=== PATIENT | female | born 1985 | race Caucasian/White ===

== ENCOUNTER 2017-07-25 08:49 | Emergency (ER) | payer MEDICAID ==
[2017-07-25 08:58] VITALS: RESP 18; TEMP 98.7; BMI 51.5
--- NOTE | 2017-07-25 09:22 | ED PDOC ---
Arrival/HPI - General Chief Complaint: Chest Pain Time Seen by Provider: 07/25/17 08:59 Historian: Patient - History of Present Illness Narrative History of Present Illness (Text): 07/25/17 09:19 A 31 year old female, whose past medical history includes hypertension and anxiety, presents to the emergency department complaining of left-side sharp chest pain. Patient reports pain has been on and off for few months. Patient called PMD to make an appointment but physician was unavailable. States episodes occur 3-5 times daily randomly. Episodes last between few seconds to few minutes. Recently began experiencing shortness of breath associated with symptom and believes she is getting worse in condition. Patient denies any fever , cough, nausea, vomiting, or any other complaints at this time. Patient does not smoke, drink alcohol, or substance abuse. Denies any recent travel or surgeries. PMD: Dr. Ordonez Time/Duration: Other (2 months on and off) Past Medical History - Provider Review Nursing Documentation Reviewed: Yes - Cardiac Hx Cardiac Disorders: Yes Hx Hypertension: Yes - Psychiatric Hx Psychophysiologic Disorder: Yes Hx Anxiety: Yes Hx Substance Use: No Family/Social History - Physician Review Nursing Documentation Reviewed: Yes Family/Social History: CAD/VA Smoking Status: Never Smoked Hx Alcohol Use: No Hx Substance Use: No Allergies/Home Meds Allergies/Adverse Reactions: Allergies No Known Allergies Allergy (Verified 07/25/17 09:14) Home Medications: Home Meds Medication Instructions Recorded Confirmed Escitalopram [Lexapro] 10 mg PO DAILY 07/25/17 07/25/17 Metoprolol Tartrate [Lopressor] 25 mg PO DAILY 07/25/17 07/25/17 Review of Systems - Physician Review All systems were reviewed & negative as marked: Yes - Review of Systems Respiratory: SOB Cardiovascular: Chest Pain Physical Exam Vital Signs Reviewed: Yes Vital Signs Temp Pulse Resp BP Pulse Ox 07/25/17 10:14 82 18 148/88 98 07/25/17 08:58 98.7 F 84 18 153/91 H 100 Temperature: Afebrile Blood Pressure: Hypertensive Pulse: Regular Respiratory Rate: Normal Appearance: Positive for: Well-Appearing Pain Distress: None Mental Status: Positive for: Alert and Oriented X 3 - Systems Exam Head: Present: Atraumatic, Normocephalic Pupils: Present: PERRL Extroacular Muscles: Present: EOMI Conjunctiva: Present: Normal Mouth: Present: Moist Mucous Membranes Neck: Present: Normal Range of Motion Respiratory/Chest: Present: Other (left side chest pain) Cardiovascular: Present: Regular Rate and Rhythm, Normal S1, S2. No: Murmurs Abdomen: No: Tenderness, Distention, Peritoneal Signs Back: Present: Normal Inspection Upper Extremity: Present: Normal Inspection. No: Cyanosis, Edema Lower Extremity: Present: Normal Inspection. No: Edema Neurological: Present: GCS=15, CN II-XII Intact, Speech Normal Skin: Present: Warm, Dry, Normal Color. No: Rashes Psychiatric: Present: Alert, Oriented x 3, Normal Insight, Normal Concentration Medical Decision Making ED Course and Treatment: 07/25/17 09:20 Impression: 31 year old female with chest pain and shortness of breath. Benign physical exam. Plan: -- Chest X-ray -- POC Urine Test -- Reassess and disposition Progress Notes: 07/25/2017 09:40 PERRC negative. Patient offered blood work but declines and wishes to have x- ray done and to be discharged. EKG: Ordered, reviewed, and independently interpreted the EKG. Rate : 76 BPM Rhythm : NSR Interpretation : No ST-segment elevations or depressions, no T-wave inversions, normal intervals. Comparison : No previous EKG for comparison. 07/25/17 16:47 atypocal pain, x few months. pt declines labs. cxr neg. advise outpt fu. - RAD Interpretation Radiology Orders: 07/25/17 09:18 CXR [CHEST TWO VIEWS (PA/LAT)] [RAD] Stat - Scribe Statement The provider has reviewed the documentation as recorded by the Amada Gauthier Provider Scribe Attestation: All medical record entries made by the Scribe were at my direction and personally dictated by me. I have reviewed the chart and agree that the record accurately reflects my personal performance of the history, physical exam, medical decision making, and the department course for this patient. I have also personally directed, reviewed, and agree with the discharge instructions and disposition. Disposition/Present on Arrival - Present on Arrival Any Indicators Present on Arrival: No History of DVT/PE: No History of Uncontrolled Diabetes: No Urinary Catheter: No History of Decub. Ulcer: No History Surgical Site Infection Following: None - Disposition Have Diagnosis and Disposition been Completed?: Yes Diagnosis: Chest pain Disposition: HOME/ ROUTINE Disposition Time: 10:00 Condition: STABLE Discharge Instructions (ExitCare): Chest Pain, Chest Pain (ED) Additional Instructions: please follow u with your doctor and rock dust sprayer. return to er with worsening symptoms or concerns. you are declining lab evaluation, however you are able to return to any er with any concern at any time. Referrals: [facility] [Outside] - Follow up with primary [facility] [Outside] - Follow up with primary [facility] [Outside] - Follow up with primary Troy Figueroa MD [Staff Provider] - Follow up with primary Forms: [email or web address] (Samoan)
[2017-07-25 10:18] VITALS: BP 148/88; PULSE 82; O2SAT 98
--- NOTE | 2017-07-25 21:31 | CARD ---
APPROVED REPORT EKG Measurement Heart [id number] <Conclusion> Normal sinus rhythm Normal ECG
== END 2017-07-25 10:15 | disposition home or self-care (01) ==
LOC: ED 08:49
DX: R07.9 Chest pain, unspecified (principal); I10 Essential (primary) hypertension